=== PATIENT | male | born 1965 | race African-American/Black ===

== ENCOUNTER 2019-05-17 12:45 | Emergency (ER) | payer SELFPAY ==
[2019-05-17] MEDS ORDERED: Lidocaine 1% (PF) 30 ML VIAL ONE (13:01)
[2019-05-17] MEDS ORDERED: Sulfameth/Trimethoprim DS 800-160mg TAB ONE (13:21)
== END 2019-05-17 13:40 | disposition home or self-care (01) ==
LOC: NAV ERS 12:45
DX: L02.212 Cutaneous abscess of back [any part, except buttock and flank] (principal); I10 Essential (primary) hypertension; F17.290 Nicotine dependence, other tobacco product, uncomplicated
CPT/HCPCS: 10060; 87070; 87205; J2001

== ENCOUNTER 2019-05-20 09:45 | Emergency (ER) | payer SELFPAY | END 2019-05-20 10:30 | disposition home or self-care (01) | LOC: NAV ERS 09:45 | DX: L02.212 Cutaneous abscess of back [any part, except buttock and flank] (principal); F17.210 Nicotine dependence, cigarettes, uncomplicated | CPT/HCPCS: 99282 ==

== ENCOUNTER 2019-05-23 11:03 | Emergency (ER) | payer SELFPAY | END 2019-05-23 11:15 | disposition home or self-care (01) | LOC: NAV ERS 11:03 | DX: Z48.817 Encounter for surgical aftercare following surgery on the skin and subcutaneous tissue (principal); F17.290 Nicotine dependence, other tobacco product, uncomplicated; Z79.899 Other long term (current) drug therapy | CPT/HCPCS: 99282 ==

== ENCOUNTER 2024-07-11 15:16 | Emergency (ER) | payer SELFPAY ==
[2024-07-11] MEDS ORDERED: Aspirin Chewable 81 MG TAB ONE (15:53)
[2024-07-11 16:21] LABS: #Basophils 0.2 thou/uL (0.0-0.2); #Eosinophils 0.1 thou/uL (0.0-0.7); #Lymphocytes 2.3 thou/uL (1.20-3.40); #Monocytes 0.4 thou/uL (0.11-0.59); #Neutrophils 3.6 thou/uL (1.40-6.50); %Basophils 2.4 % (0.0-1.0); %Eosinophils 2.2 % (0.0-10.0); %Lymphocytes 34.7 % (21.0-51.0); %Monocytes 6.2 % (0.0-10.0); %Neutrophils 54.6 % (42.0-75.0); Hematocrit 44.9 % (42.0-52.0); Mean Corpuscular HGB CONC 33.4 g/dL (32.0-36.0); Mean Corpuscular Hemoglobin 27.9 pg (27.0-31.0); Mean Corpuscular Volume 83.6 fl (78.0-98.0); Platelet Count 299 10x3/uL (130-400); RBC Distribution Width 12.5 % (11.5-14.5); Red Blood Cell (RBC) Count 5.38 mill/uL (4.70-6.10); White Blood Cell (WBC) Count 6.5 10x3/uL (4.8-10.8)
[2024-07-11 16:28] LABS: Prothrombin Time 13.4 sec (12.0-14.7)
[2024-07-11 16:29] LABS: PTT 27.7 sec (22.9-36.1)
[2024-07-11 16:43] LABS: Troponin I 0.013 ng/mL (< 0.028)
[2024-07-11 16:44] LABS: ALT (SGPT) 11 U/L (8-55); AST (SGOT) 13 U/L (5-34); Albumin 3.9 g/dL (3.5-5.0); Alkaline Phosphatase 95 U/L (40-110); Anion Gap 12 mmol/L (10-20); BUN (Urea Nitrogen) 12 mg/dL (8.4-25.7); Bilirubin, Total 0.7 mg/dL (0.2-1.2); Calc. Creatinine Clearance 0 mL/min (70-130); Calcium 9.3 mg/dL (7.8-10.44); Carbon Dioxide 27 mmol/L (22-29); Chloride 105 mmol/L (98-107); Estimated GFR 80; Globulin 2.3 g/dL (2.4-3.5); Glucose 108 mg/dL (70-105); Lipase 23 U/L (8-78); Magnesium 1.9 mg/dL (1.6-2.6); Potassium 3.9 mmol/L (3.5-5.1); Protein, Total 6.2 g/dL (6.0-8.3); Sodium 140 mmol/L (136-145)
[2024-07-11] MEDS ORDERED: fentaNYL 50 mcg/mL 1 mL Vial ONE (18:05)
[2024-07-11] MEDS ORDERED: Ondansetron PF 4 MG/2 ML Vial ONE (18:05)
[2024-07-11 19:02] LABS: Troponin I 0.013 ng/mL (< 0.028)
[2024-07-11] MEDS ORDERED: Enoxaparin 100 MG (1 mL) SYRINGE ONE (19:09)
== END 2024-07-11 21:03 | disposition short-term general hospital (02) ==
LOC: NAV ERS 15:16
DX: R07.9 Chest pain, unspecified (principal); R94.31 Abnormal electrocardiogram [ECG] [EKG]; F17.290 Nicotine dependence, other tobacco product, uncomplicated
CPT/HCPCS: 36415; 71045; 80053; 83690; 83735; 83880; 84484; 85025; 85379; 85610; 85730; 93005; 94760; 96374; 96375; J1650; J2405; J3010